=== PATIENT | female | born 1955 | race Caucasian/White ===

== ENCOUNTER → 2017-04-16 | Outpatient (CLI) | payer OTHER | LOC: EMI 14:17 | DX: R51 Headache (principal) | CPT/HCPCS: 70553; A9577; J7050 ==

== ENCOUNTER → 2020-12-02 | Outpatient (CLI) | payer OTHER | LOC: US 08:27 → CT 10:00 | DX: R11.0 Nausea (principal); R42 Dizziness and giddiness; K76.0 Fatty (change of) liver, not elsewhere classified; J32.4 Chronic pansinusitis | CPT/HCPCS: 70450; 76700 ==